=== PATIENT | female | born 1960 | race African-American/Black ===

== ENCOUNTER 2018-06-30 14:52 | Emergency (ER) | payer OTHER ==
[2018-06-30 15:11] VITALS: BMI 27.4
--- NOTE | 2018-06-30 15:19 | PDOC ---
Rapid Medical Evaluation Chief Complaint: Weakness Time Seen by Provider: 06/30/18 15:11 Medical Evaluation: Allergies Allergy/AdvReac Type Severity Reaction Status Date / Time acetaminophen [From Tylenol] Allergy Vomiting Verified 06/30/18 15:09 Vital Signs Temp Pulse Resp BP Pulse Ox 99.4 F 84 20 126/80 100 06/30/18 15:06/30/18 15:06/30/18 15:06/30/18 15:06/30/18 15:06/30/18 15:17 complain: Patient present with complains weakness, wheezing, intermittent , cough and and dizziness since yesterday exam: mild diffused wheezing. heart: RRR, no murmurs. abd: soft. NT/ND order: chest x-rays f/u patient will proceed to ED for further evaluation Discharge Disposition - Diagnosis Cough, Wheezing - Referrals - Patient Instructions - Post Discharge Activity
[2018-06-30] MEDS ORDERED: ONDANSETRON 4 MG/2 ML VIAL IVPUSH ONE (16:13)
[2018-06-30] MEDS ORDERED: SODIUM CHLORIDE 0.9% 500 ML INFUS.BAG IV ONE (16:13)
--- NOTE | 2018-06-30 16:33 | PDOC ---
History of Present Illness - General Chief Complaint: Weakness Stated Complaint: SOB, VOMITING Time Seen by Provider: 06/30/18 15:11 - History of Present Illness Initial Comments: Ann Charles is a 58yo woman with a PMH of HTN and current smoking who presents to the ED today complaining of SOB for 1-2 weeks as well as nausea, vomiting, inability to take PO, and lightheadedness since Saturday, significantly worse since yesterday evening. She reports that she has been feeling slightly short of breath for a week or two. This has not worsened during this time, and she denies any associated cough , fever, URI symptoms, chest pain, or cardiac history other than the HTN. She does have a remote history of childhood asthma and also reports multiple environmental allergies. She does not take a daily allergy medication but uses benadryl occasionally if her symptoms are bad. Ms Charles says that she is more concerned about her nausea and vomiting. She states that since Saturday she has been unable to keep down any food or drinks. Every time she tries to eat or drink anything she has vomited. Starting yesterday, the frequency of the emesis increased dramatically - she reports at least 20 episodes of vomiting over the past day. For the past few times, she has noticed that the vomit has turned bright green. She also had an episode of watery diarrhea last night and one this morning. Ms Charles denies any abdominal pain, h/o frequent heartburn, abdominal surgery, or history of nausea associated with eating. She has not had a fever that she is aware of, but she does state that she has felt alternately hot and cold. Also since Saturday, Ms Charles reports feeling lightheaded, particularly when she stands up. She feels lightheaded immediately when she stands up, but the feeling worsens the longer she tries to stand. She has felt generally weak along with this lightheadedness. She does not report any known sick contacts or recent travel. Past History - Past Medical History Allergies/Adverse Reactions: Allergies Allergy/AdvReac Type Severity Reaction Status Date / Time acetaminophen [From Tylenol] Allergy Vomiting Verified 06/30/18 15:09 Home Medications: Ambulatory Orders NK [No Known Home Medication] 06/30/18 COPD: No - Immunization History Immunization Up to Date: Yes - Suicide/Smoking/Psychosocial Hx Smoking History: Current every day smoker Have you smoked in the past 12 months: Yes Number of Cigarettes Smoked Daily: 6 Information on smoking cessation initiated: No Hx Alcohol Use: Yes Substance Use Type: None Review of Systems - Review of Systems Comments:: General: +Feels hot/cold, +malaise, +generalized weakness HEENT: No changes in vision, no changes in hearing, no congestion, no sore throat CV: No palpitations, no LE edema. No ALBRIGHT or exertional chest pain Pulm: +remote h/o asthma. +environmental allergies, +recent SOB GI: +bilious vomiting. +watery diarrhea. +inability to take PO : No frequency, no urgency, no dysuria Musc: No back pain, no joint swelling, no recent injury Skin: No rash, no lesions, no erythema Endo: No excessive thirst, no heat/cold intolerance Heme: No unusual bruising or bleeding, no swollen glands Neuro: No syncope, no numbness/tingling, no focal weakness Vasc: No claudication Psych: No recent change in mood, no SI or HI *Physical Exam - Vital Signs Last Vital Signs Temp Pulse Resp BP Pulse Ox 99.4 F 84 20 126/80 100 06/30/18 15:09 06/30/18 15:09 06/30/18 15:09 06/30/18 15:09 06/30/18 15:09 - Physical Exam Comments: General: Uncomfortable. HEENT: PERRL, EOMI. Slightly dry MM. Normal neck ROM Cards: RRR, no murmur appreciated Pulm: Comfortable on room air, clear to auscultation bilaterally. No wheezing or crackles appreciated. Chest wall nontender to palpation Abd: Soft, nontender, nondistended. No rebound or guarding. Negative brewster's sign : No CVA tenderness Ext: Atraumatic. No LE edema. ROM intact. Strength 5/5 and equal bilaterally Vasc: Extremities WWP. Palpable radial and pedal pulses bilaterally Neuro: A&Ox3, CN grossly intact, normal speech, motor/sensory grossly intact and symmetric Psych: Mood appropriate to situation ED Treatment Course - LABORATORY CBC & Chemistry Diagram: 06/30/18 17:31 06/30/18 17:31 Medical Decision Making - Medical Decision Making 06/30/18 16:52 Ann Charles is a 58yo woman with a history of HTN who presents with nausea, bilious vomiting, 2 episodes of watery diarrhea, inability to tolerate PO and lightheadedness that has been worsening over the past 3 days. She additionally reports SOB for 1-2 weeks. - Differential for n/v/d includes gallbladder or pancreatic disease, though she does not have abdominal pain. Could also be partial bowel obstruction. Also consider infectious causes. - Lightheadedness with standing most likely secondary to hypovolemia from multiple episodes of vomiting and low PO intake - Will r/o ACS as she has nausea, reports brief chest pain, SOB, lightheadedness - CBC, CMP, mag, phos, lipase, trop, EKG ordered - 1L NS bolus for likely hypovolemia, zofran for nausea 06/30/18 18:32 - Labs returned with troponin 17 - EKG obtained immediately as it had not been completed - shows ST elevations in II, III, aVF. Inferior STEMI - Ordered 324mg chewable ASA, heparin bolus 5000u, high dose heparin drip. - Cardiology called - Planning transfer to [place], call to transfer center placed 06/30/18 19:08 - [place] [facility] lab technician activated, Transfer underway Seen and discussed with Dr Monet. *DC/Admit/Observation/Transfer Diagnosis at time of Disposition: Cough, Wheezing, STEMI (ST elevation myocardial infarction) - Referrals - Patient Instructions - Post Discharge Activity
--- NOTE | 2018-06-30 17:17 | PDOC ---
Attending Attestation - Resident Resident Name: FamiliaDaja - ED Attending Attestation I have performed the following: I have examined & evaluated the patient, The case was reviewed & discussed with the resident, I agree w/resident's findings & plan, Exceptions are as noted - HPI HPI: 06/30/18 17:14 58 year old female with PMH of HTN presents with nausea, vomiting, and diarrhea. 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 Unsure if there were any sick contacts. No recent travels or bad foods. Stated that she has developed significant amount of nausea and vomiting, up to 20 times a day. Starting to become bilious. But denies abdominal pain. Noted yesterday to having two loose stools daily. No fevers. No abdominal pain. Because she was unable to tolerate PO, came into the ER. - Physicial Exam PE: 06/30/18 17:44 GENERAL: Awake, alert, and fully oriented, in no acute distress HEAD: No signs of trauma EYES: EOMI, sclera anicteric, conjunctiva clear ENT: Auricles normal inspection, hearing grossly normal, nares patent, dry mucous membranes. NECK: Normal ROM, supple ABDOMEN: Soft, nontender, No guarding, no rebound. No masses EXTREMITIES: Normal range of motion, no edema. No clubbing or cyanosis. No cords, erythema, or tenderness NEUROLOGICAL: Cranial nerves II through XII grossly intact. Normal speech, normal gait SKIN: Warm, Dry, normal turgor, no rashes or lesions noted. - Medical Decision Making 06/30/18 17:45 Vital Signs Temp Pulse Resp BP Pulse Ox 99.4 F 84 20 126/80 100 06/30/18 15:09 06/30/18 15:09 06/30/18 15:09 06/30/18 15:09 06/30/18 15:09 Pt with nausea and vomiting and diarrhea. Differential includes viral syndrome, gastroenteritis, pancreatitis. Labs, IVF, anti-emetics. If unable to tolerate PO, admit. Pt did endorse intermittent some mild SOB, but denies chest pain. It appears that her SOB may be secondary to all of her nausea and vomiting. Will send an ECG and troponin 06/30/18 18:26 CBC, BMP 06/30/18 17:31 06/30/18 17:31 CMP Sodium 139 mmol/L (136-145) 06/30/18 17:31 Potassium 4.2 mmol/L (3.5-5.1) 06/30/18 17:31 Chloride 104 mmol/L (98-107) 06/30/18 17:31 Carbon Dioxide 27 mmol/L (21-32) 06/30/18 17:31 Anion Gap 8 (8-16) 06/30/18 17:31 BUN 7 mg/dL (7-18) 06/30/18 17:31 Creatinine 0.7 mg/dL (0.55-1.02) 06/30/18 17:31 Creat Clearance w eGFR > 60 (>60) 06/30/18 17:31 Random Glucose 155 mg/dL (74-106) H 06/30/18 17:31 Calcium 9.6 mg/dL (8.5-10.1) 06/30/18 17:31 Phosphorus 3.1 mg/dL (2.5-4.9) 06/30/18 17:31 Magnesium 2.1 mg/dL (1.8-2.4) 06/30/18 17:31 Total Bilirubin 0.4 mg/dL (0.2-1.0) 06/30/18 17:31 AST 243 U/L (15-37) H 06/30/18 17:31 ALT 56 U/L (12-78) 06/30/18 17:31 Alkaline Phosphatase 88 U/L (45-117) 06/30/18 17:31 Troponin I 17.30 ng/ml (0.00-0.05) H* 06/30/18 17:31 Total Protein 7.7 g/dl (6.4-8.2) 06/30/18 17:31 Albumin 3.8 g/dl (3.4-5.0) 06/30/18 17:31 Lipase 64 U/L (73-393) L 06/30/18 17:31 Trop 17! ECG STEMI inferior leads. Aspirin, heparin Stat Pt requests [facility]. Stat Transfer called in. Heart Score/ECG Review #1 ECG reviewed & interpreted by me at: 18:20 06/30/18 18:30 NSR 70, LVH with repolarization abnormality, Q wave III, avF, ST elevation in II , III, avF, with STD aVL, QTC 468 msec
[2018-06-30] MEDS ORDERED: ONDANSETRON 4 MG/2 ML VIAL ONE (17:18)
[2018-06-30 17:41] LABS: HEMATOCRIT 42.4 % (32.4-45.2); HEMOGLOBIN 14.3 GM/dL (10.7-15.3); MCHC 33.7 g/dl (32.0-36.0); MEAN PLT VOLUME 8.7 fl (7.5-11.1); PLATELET COUNT 215 K/MM3 (134-434); RBC 4.46 M/mm3 (3.60-5.2); RDW 14.4 % (11.6-15.6); WHITE BLOOD COUNT 7.8 K/mm3 (4.0-10.0)
[2018-06-30 17:59] LABS: ALBUMIN 3.8 g/dl (3.4-5.0); ANION GAP 8 (8-16); BILIRUBIN,TOTAL 0.4 mg/dL (0.2-1.0); BLOOD UREA NITROGEN 7 mg/dL (7-18); CALCIUM 9.6 mg/dL (8.5-10.1); CHLORIDE 104 mmol/L (98-107); CO2 27 mmol/L (21-32); CREATININE 0.7 mg/dL (0.55-1.02); GLUCOSE,RANDOM 155 mg/dL (74-106); LIPASE 64 U/L (73-393); MAGNESIUM 2.1 mg/dL (1.8-2.4); PHOSPHOROUS 3.1 mg/dL (2.5-4.9); POTASSIUM 4.2 mmol/L (3.5-5.1); SGOT/AST 243 U/L (15-37); SGPT/ALT 56 U/L (12-78); SODIUM 139 mmol/L (136-145); TOT PROT 7.7 g/dl (6.4-8.2)
[2018-06-30 18:03] LABS: ALK PHOS 88 U/L (45-117)
[2018-06-30] MEDS ORDERED: ASPIRIN 81 MG CHEWABLE TABLETS PO ONE (18:23)
[2018-06-30] MEDS ORDERED: HEPARIN NA (PORCINE) 5,000 UNITS/ML 1ML VIAL IVPUSH PRN ×3 (18:23)
[2018-06-30] MEDS ORDERED: CLOPIDOGREL BISULFATE 300 MG TABLET PO ONE ×2 (18:23→18:38)
[2018-06-30] MEDS ORDERED: HEPARIN NA (PORCINE) 5,000 UNITS/ML 1ML VIAL ONE (18:27)
[2018-06-30] MEDS ORDERED: ASPIRIN 81 MG CHEWABLE TABLETS ONE (18:27)
[2018-06-30] MEDS ORDERED: HEPARIN INFUSION - 25,000 UNITS/500 ML INFUS.BAG IVPB ONE (18:28)
[2018-06-30] MEDS ORDERED: HEPARIN INFUSION - 25,000 UNITS/500 ML INFUS.BAG IVPB SCH (18:30)
--- NOTE | 2018-06-30 18:34 | PDOC ---
*Physical Exam - Vital Signs Last Vital Signs Temp Pulse Resp BP Pulse Ox 99.4 F 84 20 126/80 100 06/30/18 15:09 06/30/18 15:09 06/30/18 15:09 06/30/18 15:09 06/30/18 18:21 ED Treatment Course - LABORATORY CBC & Chemistry Diagram: 06/30/18 17:31 06/30/18 17:31 - ADDITIONAL ORDERS Additional order review: Laboratory Results 06/30/18 17:31 Sodium 139 Potassium 4.2 Chloride 104 Carbon Dioxide 27 Anion Gap 8 BUN 7 Creatinine 0.7 Creat Clearance w eGFR > 60 Random Glucose 155 H Calcium 9.6 Phosphorus 3.1 Magnesium 2.1 Total Bilirubin 0.4 AST 243 H ALT 56 Alkaline Phosphatase 88 Troponin I 17.30 H* Total Protein 7.7 Albumin 3.8 Lipase 64 L 06/30/18 17:31 RBC 4.46 MCV 95.0 MCHC 33.7 RDW 14.4 MPV 8.7 - RADIOLOGY Radiology Studies Ordered: Category Date Time Status CHEST X-RAY PORTABLE* [RAD] Stat Radiology 06/30/18 18:31 Ordered - Medications Given in the ED: ED Medications Discontinued Medications Generic Name Dose Route Start Last Admin Trade Name Freq PRN Reason Stop Dose Admin Ondansetron HCl 4 mg 06/30/18 16:13 06/30/18 17:34 Zofran Injection IVPUSH 06/30/18 16:14 4 mg ONCE ONE Administration Sodium Chloride 1,000 ml 06/30/18 16:13 06/30/18 17:34 Normal Saline - IV 06/30/18 16:14 1,000 ml ONCE ONE Administration Medical Decision Making - Critical Care Time Total Critical Care Time (minutes): 30 Critical Care Statement: The care of this patient involved high complexity decision making to prevent further life threatening deterioration of the patient 's condition and/or to evaluate & treat vital organ system(s) failure or risk of failure. - Medical Decision Making 06/30/18 18:32 Pt accepted to [facility] to Dr. Magan Gonzalez. *DC/Admit/Observation/Transfer Diagnosis at time of Disposition: Cough, Wheezing STEMI (ST elevation myocardial infarction) Qualifiers: Involved coronary artery: unspecified coronary artery Qualified Code(s): I21.3 - ST elevation (STEMI) myocardial infarction of unspecified site - Discharge Dispostion Disposition: TRANSFER ACUTE CARE/OTHER HOSP Condition at time of disposition: Guarded - Referrals - Patient Instructions - Post Discharge Activity - Transfer to Acute Care Facility Receiving Facility: [facility]. Accepting Physician:: Dr. Magan Gonzalez
[2018-06-30] MEDS ORDERED: CLOPIDOGREL BISULFATE 300 MG TABLET ONE (18:40)
[2018-06-30 18:53] VITALS: PULSE 78; TEMP 98.6
[2018-06-30 19:06] VITALS: BP 140/78
--- NOTE | 2018-07-01 16:27 | EKG ---
Test Reason : Blood Pressure : / mmHG Vent. Rate : 070 BPM Atrial Rate : 070 BPM P-R Int : 180 ms QRS Dur : 072 ms QT Int : 434 ms P-R-T Axes : 038 -13 000 degrees QTc Int : 468 ms AGE AND GENDER SPECIFIC ECG ANALYSIS NORMAL SINUS RHYTHM LEFT VENTRICULAR HYPERTROPHY WITH REPOLARIZATION ABNORMALITY INFERIOR INFARCT , POSSIBLY ACUTE ACUTE VT / STEMI Consider right ventricular involvement in acute inferior infarct ABNORMAL ECG NO PREVIOUS ECGS AVAILABLE Confirmed by Александр Singh MD ([id number]) on 07/01/2018 4:26:54 PM Referred By: Confirmed By:Александр Singh MD
== END 2018-06-30 19:11 | disposition short-term general hospital (02) ==
LOC: JER 14:52
PROC: 3E0337Z Introduction of Electrolytic and Water Balance Substance into Peripheral Vein, Percutaneous Approach (ICD-10-PCS; principal; 2018-06-30)
DX: I21.3 ST elevation (STEMI) myocardial infarction of unspecified site (principal); R05 Cough; R06.2 Wheezing; I10 Essential (primary) hypertension
CPT/HCPCS: 36415; 71045-TC-FY; 80053; 83690; 83735; 84100; 84484; 85027; 93005; 93010; 99285-25; J1644